=== PATIENT | male | born 1980 | race Hispanic/Latino ===

== ENCOUNTER 2019-01-29 12:25 | Emergency (ER) | payer OTHER ==
--- OUTSIDE RECORDS SUMMARY | 2019-01-29 12:27 | XMS REPORT | Clinical Summary ---
:1980 Author Organization [facility] Address [address] [place] [address] Care Team Providers Name Role Phone Pcp, No Primary Care Provider Unavailable Allergies No Known Allergies Medications Medication Sig Dispensed Refills Start Date End Date Status dicyclomine (BENTYL) Take 1 tablet 16 tablet 0 10/06/2014 Active 20 mg tablet (20 mg total) by mouth 2 (two) times daily as needed. acetaminophen-codeine Take 1 tablet 0 Active (TYLENOL #3) 300-30 mg by mouth every per tablet 4 (four) hours as needed for Pain. ondansetron Take 1 tablet 20 tablet 0 04/12/2018 04/19/2018 (ZOFRAN-ODT) 4 MG (4 mg total) by disintegrating tablet mouth every 8 (eight) hours as needed for Nausea for up to 7 days. acetaminophen-codeine Take 1-2 20 tablet 0 04/12/2018 04/22/2018 (TYLENOL #3) 300-30 mg tablets by per tablet mouth every 6 (six) hours as needed for Pain for up to 10 days. Max Daily Amount: 8 tablets Active Problems Not on file Encounters Date Type Specialty Care Team Description 04/12/2018 Emergency Emergency Medicine Peter Villarreal, Elevated lipase ( Primary Dx); Left flank pain; Left renal mass after 01/28/2018 Social History Tobacco Use Types Packs/Day Years Used Date Never Smoker Smokeless Tobacco: Never Used Alcohol Use Drinks/Week oz/Week Comments No Sex Assigned at Date Recorded Not on file Job Start Date Occupation Industry Not on file Not on file Not on file Travel History Travel Start Travel End No recent travel history available. Last Filed Vital Signs Vital Sign Reading Time Taken Blood Pressure 135/83 04/12/2018 11:54 AM [employer] Pulse 58 04/12/2018 11:54 AM [employer] MACHINE [employer]PERATOR Temperature 36.5 C (97.7 F) 04/12/2018 10:04 AM [employer] MACHINE OPERATOR Respiratory Rate 20 04/12/2018 11:54 AM [employer] MACHINE [employer]PERATOR Oxygen Saturation 99% 04/12/2018 11:54 AM [employer] MACHINE OPERATOR Inhaled Oxygen Concentration - - Weight 74.4 kg (164 lb) 04/12/2018 10:04 AM [employer] MACHINE OPERATOR Height 162.6 cm (5' 4") 04/12/2018 10:04 AM [employer] MACHINE OPERATOR Body Mass Index 28.15 04/12/2018 10:04 AM [employer] MACHINE OPERATOR Plan of Treatment Not on file Procedures Procedure Name Priority Date/Time Associated Comments Diagnosis CT CHEST WITH IV STAT 04/12/2018 10:57 Results for this CONTRAST AM [employer]INE [employer]PERATOR procedure are in the results section. LIPASE STAT 04/12/2018 10:46 Results for this AM [employer] M[employer]INE [employer]PERATOR procedure are in the results section. CBC W/PLT COUNT & AUTO STAT 04/12/2018 10:20 Results for this DIFFERENTIAL AM [employer] procedure are in the results section. URINALYSIS W/ STAT 04/12/2018 10:20 Results for this MICROSCOPIC AM [employer]PER[employer] procedure are in the results section. COMPREHENSIVE STAT 04/12/2018 10:20 Results for this METABOLIC PANEL AM [employer]INE [employer]PERATOR procedure are in the results section. CBC W/PLT COUNT & AUTO STAT 04/12/2018 10:20 Results for this DIFFERENTIAL AM [employer] MACHINE OPERATOR procedure are in the results section. BLOOD CULTURE STAT 04/12/2018 10:20 Results for this AM [employer] MACHINE OPERATOR procedure are in the results section. after 01/28/[address] chest with IV contrast (04/12/2018 10:57 AM CARTON MACHINE OPERATOR) Specimen Narrative Performed At FINAL REPORT [employer] [facility] TECHNIQUE: CT scan of the chest WITH intravenous contrast. Dose modulation, iterative reconstruction, and/or weight-based adjustment of the mA/kV was utilized to reduce the radiation dose to as low as reasonably achievable. INDICATION: Left lower rib/chest pain, history of pneumonia and empyema in 2011 with similar features. COMPARISON: Chest CT from 03/13/2012. FINDINGS: LINES/TUBES: None. LUNGS AND AIRWAYS: There is likely right basilar scarring/atelectasis from the prior right lower lobe pneumonia. PLEURA: The pleural spaces are clear. HEART AND MEDIASTINUM: The visualized thyroid gland is normal. No significant mediastinal, hilar, or axillary lymphadenopathy. The heart and pericardium are within normal limits. SOFT TISSUES AND BONES: Unremarkable. UPPER ABDOMEN: A subcentimeter right interpolar renal hypodensity is too small to characterize but likely a cyst. Area of left upper pole renal cortical irregularity measures 1.3 cm on image 59 and is most concerning for a solid renal neoplasm. Specifically, no areas of necrosis in the pancreas. No peripancreatic fluid collection. IMPRESSION: 1.No pulmonary embolus. 2.A solid left upper pole renal neoplasm measures 1.3 cm, concerning for renal cell carcinoma. Further evaluation with a CT renal mass protocol is recommended on a nonemergent basis to evaluate for other lesions. 3.The findings in the right lung base are most likely due to scarring from the prior empyema. The findings were discussed with Dr. Villarreal on 04/12/2018 11:28 AM. Signed: Mark Chase MD Report Verified Date/Time:04/12/2018 11:29:36 Reading Location: [facility] C013Y CT Body Reading Room Procedure Note Interface, External Ris In - 04/12/2018 11:31 AM CARTON MACHINE OPERATOR FINAL REPORT TECHNIQUE: CT scan of the chest WITH intravenous contrast. Dose modulation, iterative reconstruction, and/or weight-based adjustment of the mA/kV was utilized to reduce the radiation dose to as low as reasonably achievable. INDICATION: Left lower rib/chest pain, history of pneumonia and empyema in 2012 with similar features. COMPARISON: Chest CT from 03/13/2012. FINDINGS: LINES/TUBES: None. LUNGS AND AIRWAYS: There is likely right basilar scarring/atelectasis from the prior right lower lobe pneumonia. PLEURA: The pleural spaces are clear. HEART AND MEDIASTINUM: The visualized thyroid gland is normal. No significant mediastinal, hilar, or axillary lymphadenopathy. The heart and pericardium are within normal limits. SOFT TISSUES AND BONES: Unremarkable. UPPER ABDOMEN: A subcentimeter right interpolar renal hypodensity is too small to characterize but likely a cyst. Area of left upper pole renal cortical irregularity measures 1.3 cm on image 59 and is most concerning for a solid renal neoplasm. Specifically, no areas of necrosis in the pancreas. No peripancreatic fluid collection. IMPRESSION: 1.No pulmonary embolus. 2.A solid left upper pole renal neoplasm measures 1.3 cm, concerning for renal cell carcinoma. Further evaluation with a CT renal mass protocol is recommended on a nonemergent basis to evaluate for other lesions. 3.The findings in the right lung base are most likely due to scarring from the prior empyema. The findings were discussed with Dr. Villarreal on 04/12/2018 11:28 AM. Signed: Mark Chase MD Report Verified Date/Time: 04/12/2018 11:29:36 Reading Location: [facility] C013Y CT Body Reading Room Performing Organization Address City/[facility] Phone Number RIS Lipase (04/12/2018 10:46 AM CARTON MACHINE OPERATOR) Lipase 462 (H) 40 - 240 U/L [facility] Specimen Blood Performing Organization Address City/[facility]/Zipcode Phone Number [facility] [address] [place] [address] [phone] CBC with platelet count + automated diff (04/12/2018 10:20 AM CARTON MACHINE OPERATOR) WBC 7.1 4.0 - 10.0 K/L [facility] RBC 4.68 4.20 - 5.80 M/L [facility] Hemoglobin 15.0 13.0 - 16.8 GM/DL [facility] Hematocrit 43.3 36.0 - 50.0 % [facility] MCV 92.5 82.0 - 99.0 fL [facility] MCH 32.1 27.0 - 33.0 pg [facility] MCHC 34.6 32.0 - 36.0 GM/DL [facility] RDW 12.6 12.0 - 15.0 % [facility] Platelets 330 150 - 430 K/CU MM [facility] MPV 8.9Comment: 6.0 - 11.5 fL [facility] MPV-Approximately 20% positive bias due to method change. nRBC 0 0 - 0 /100 WBC [facility] % Neutros 52 % [facility] % Lymphs 32 % [facility] % Monos 11 % [facility] % Eos 4 % [facility] % Baso 0 % [facility] # Neutros 3.66 1.80 - 8.00 K/L [facility] # Lymphs 2.26 1.48 - 4.50 K/L [facility] # Monos 0.80 0.00 - 1.30 K/L [facility] # Eos 0.27 0.00 - 0.50 K/L [facility] # Baso 0.03 0.00 - 0.20 K/L [facility] Immature 0 0 - 0 % [facility] Granulocytes-Relative Specimen Blood Performing Organization Address [facility] Phone Number [facility] [address] [place] [address] Blood culture (04/12/2018 10:20 AM CARTON MACHINE OPERATOR) Result No growth in 5 days [facility] Specimen Blood Performing Organization Address [facility] Phone Number [facility] [address] [place] [address] Urinalysis w/Microscopic (04/12/2018 10:20 AM CARTON MACHINE OPERATOR) Color, UA Yellow [facility] Clarity, UA Clear [facility] Specific [place], UA 1.025 1.001 - 1.035 [facility] pH, UA 6.0 5.0 - 8.0 [facility] Protein, UA Negative Negative [facility] Glucose, UA Negative Negative [facility] Ketones, UA Negative Negative [facility] Bilirubin, UA Negative Negative [facility] Blood, UA Negative Negative [facility] Nitrite, UA Negative Negative [facility] Leukocytes, UA Negative Negative [facility] Urobilinogen, UA 0.2 0.2 - 1.0 mg/dL [facility] RBC, UA None Seen /HPF [facility] WBC, UA None Seen /HPF [facility] Specimen Source [facility] Specimen Urine Performing Organization Address [facility] Phone Number [facility] [address] [place] [address] Comprehensive metabolic panel (04/12/2018 10:20 AM CARTON MACHINE OPERATOR) Protein, Total 7.2 6.0 - 8.5 gm/dL [facility] Albumin 4.1 3.5 - 5.0 g/dL [facility] Alkaline Phosphatase 105 30 - 115 U/L [facility] Total Bilirubin 0.2 0.1 - 1.2 mg/dL [facility] Sodium 139 135 - 148 meq/L [facility] Potassium 4.3 3.6 - 5.5 meq/L [facility] Chloride 106 98 - 106 meq/L [facility] CO2 27 24 - 32 meq/L [facility] BUN 10 10 - 26 mg/dL [facility] Creatinine 0.68 0.50 - 1.20 mg/dL [facility] Glucose 105 70 - 110 mg/dL [facility] Calcium 8.9 8.5 - 10.5 mg/dL [facility] AST 16 5 - 40 U/L [facility] ALT 25 5 - 50 U/L [facility] EGFR 129Comment: ESTIMATED GFR mL/min/1.73 sq m [facility] IS NOT ACCURATE CREATININE CLEARANCE IN PREDICTING GLOMERULAR FILTRATION RATE. ESTIMATED GFR IS NOT APPLICABLE FOR DIALYSIS PATIENTS. Specimen Blood Performing Organization Address City/State/Zipcode Phone Number [facility] [address] [place] [address] [phone] after 01/28/2018
--- NOTE | 2019-01-29 13:23 | EDPHYS ---
Physician Documentation [facility] Name: Rickey Dong Age: 38 yrs Sex: Male : 1980 Arrival Date: 01/29/2019 Time: 12:28 Bed 19 Private MD: ED Physician Zachary Rodgers HPI: 01/29 13:16 This 38 yrs old Male presents to ER via Ambulatory with complaints of Rash. cp 13:16 The patient's rash thought to be caused by an unknown cause. The rash is located on the groin area. The rash can be described as erythematous, burning. Onset: The symptoms/episode began/occurred 2 week(s) ago. Associated signs and symptoms: Pertinent positives: burning sensation, Pertinent negatives: fever. Treatment given at home: OTC lotion/cream. Historical: - Allergies: 12:30 No Known Allergies; sv - PMHx: 12:30 kidney cancer; sv - PSHx: 12:30 partial kidney removed; sv - Immunization history:: Adult Immunizations up to date. ROS: 13:17 Constitutional: Negative for body aches, chills, fever, poor PO intake. cp 13:17 Abdomen/GI: Negative for abdominal pain, nausea, vomiting, and diarrhea. 13:17 Skin: Positive for rash, of the groin area. 13:17 All other systems are negative. Exam: 13:19 Constitutional: The patient appears in no acute distress, alert, awake, non-toxic, well cp developed, well nourished. 13:19 Head/Face: Normocephalic, atraumatic. cp 13:19 Skin: rash can be described as erythematous, scale, on the groin and scrotum. Vital Signs: 12:30 BP 140 / 82; Pulse 102; Resp 18; Temp 98.5; Pulse Ox 100% ; Weight 76.2 kg; Height 5 sv ft. 4 in. (162.56 cm); Pain 0/10; 12:30 Body Mass Index 28.84 (76.20 kg, 162.56 cm) sv MDM: 12:57 Patient medically screened. cp 13:20 Differential diagnosis: tinea cruris, cellulitis. cp 13:21 Data reviewed: vital signs, nurses notes, and as a result, I will discharge patient. cp 13:21 Counseling: I had a detailed discussion with the patient and/or guardian regarding: the cp historical points, exam findings, and any diagnostic results supporting the discharge/admit diagnosis, to return to the emergency department if symptoms worsen or persist or if there are any questions or concerns that arise at home. Administered Medications: No medications were administered Disposition: 13:35 Chart complete. cp 16:05 Co-signature as Attending Physician, Zachary Rodgers MD I agree with the assessment and kdr plan of care. Disposition: 01/29/19 13:22 Discharged to Home. Impression: Tinea cruris. - Condition is Stable. - Discharge Instructions: Jock Itch. - Prescriptions for Clotrimazole 1 % Topical Cream - Apply to affected area 1 application by TOPICAL route every 12 hours for 10 days apply to groin area; 30 gram. Fluconazole 150 mg Oral Tablet - take 1 tablet by ORAL route every other day for 3 days; 3 tablet. - Medication Reconciliation Form, Thank You Letter, Antibiotic Education, Prescription Opioid Use, Work release form form. - Follow up: Private Physician; When: 1 week; Reason: Worsening of condition. Signatures: Steffi Soler RN RN Zachary Neely MD MD kdr Drake So, CHOPPER FEEDER CHOPPER FEEDER em Alfa Haas PA PA cp Corrections: (The following items were deleted from the chart) 13:31 13:22 01/29/2019 13:22 Discharged to Home. Impression: Tinea cruris. Condition is em Stable. Discharge Instructions: Jock Itch. Prescriptions for Clotrimazole 1 % Topical Cream - Apply to affected area 1 application by TOPICAL route every 12 hours for 10 days apply to groin area; 30 gram, Fluconazole 150 mg Oral Tablet - take 1 tablet by ORAL route every other day for 3 days; 3 tablet. and Forms are Medication Reconciliation Form, Thank You Letter, Antibiotic Education, Prescription Opioid Use. Follow up: Private Physician; When: 1 week; Reason: Worsening of condition. cp
--- NOTE | 2019-01-29 13:23 | ER ---
Nurse's Notes [facility] Name: Rickey Dogn Age: 38 yrs Sex: Male : 1980 Arrival Date: 01/29/2019 Time: 12:28 Bed 19 Private MD: Diagnosis: Tinea cruris Presentation: 01/29 12:29 Presenting complaint: Patient states: rash in groin area x 2 weeks, works out in the heat. Transition of care: patient was not received from another setting of care. Onset of symptoms was December 2018. Risk Assessment: Do you want to hurt yourself or someone else? Patient reports no desire to harm self or others. Initial Sepsis Screen: Does the patient meet any 2 criteria? No. Patient's initial sepsis screen is negative. Does the patient have a suspected source of infection? No. Patient's initial sepsis screen is negative. Care prior to arrival: None. 12:29 Method Of Arrival: Ambulatory sv 12:29 Acuity: CORTES 5 sv Historical: - Allergies: 12:30 No Known Allergies; sv - PMHx: 12:30 kidney cancer; sv - PSHx: 12:30 partial kidney removed; sv - Immunization history:: Adult Immunizations up to date. Screenin:25 Abuse screen: Denies threats or abuse. Nutritional screening: No deficits noted. em Tuberculosis screening: No symptoms or risk factors identified. Fall Risk None identified. Assessment: 13:29 General: Appears in no apparent distress. comfortable, Behavior is calm, cooperative. em Pain: Denies pain. Neuro: Level of Consciousness is awake, alert, obeys commands. Cardiovascular: Capillary refill < 3 seconds Patient's skin is warm and dry. Respiratory: Airway is patent Respiratory effort is even, unlabored, Respiratory pattern is regular, symmetrical. Derm: Skin is intact, is healthy with good turgor, Skin is pink, warm \T\ dry. Rash noted that is itchy, red, on groin. Musculoskeletal: Capillary refill < 3 seconds, Range of motion: intact in all extremities. Vital Signs: 12:30 BP 140 / 82; Pulse 102; Resp 18; Temp 98.5; Pulse Ox 100% ; Weight 76.2 kg; Height 5 sv ft. 4 in. (162.56 cm); Pain 0/10; 12:30 Body Mass Index 28.84 (76.20 kg, 162.56 cm) ED Course: 12:28 Patient arrived in ED. mr 12:30 Triage completed. sv 12:31 Arm band placed on. sv 12:56 Drake So LVN is Primary Nurse. em 12:56 Alfa Haas PA is PHCP. cp 12:56 Zachary Rodgers MD is Attending Physician. cp 13:25 Patient has correct armband on for positive identification. Placed in gown. Bed in low em position. Call light in reach. Adult w/ patient. 13:25 No provider procedures requiring assistance completed. Patient did not have IV access em during this emergency room visit. Administered Medications: No medications were administered Outcome: 13:22 Discharge ordered by MD. cp 13:31 Discharged to home ambulatory, with family. em 13:31 Condition: good 13:31 Discharge instructions given to patient, Instructed on discharge instructions, follow up and referral plans. medication usage, Demonstrated understanding of instructions, follow-up care, medications, Prescriptions given X 2. 13:31 Patient left the ED. em Signatures: Steffi Soler RN RN Avila Janeth mr JudahDrake LVN LVN em Alfa Haas PA PA cp
== END 2019-01-29 13:31 | disposition home or self-care (01) ==
LOC: ER 12:25
DX: B35.6 Tinea cruris (principal); Z85.528 Personal history of other malignant neoplasm of kidney
CPT/HCPCS: 99282

== ENCOUNTER 2019-03-15 13:32 | Emergency (ER) | payer OTHER ==
[2019-03-15 14:37] LABS: Basophils % 0.6 % (0-1.3); Hematocrit 43.7 % (39.6-49.0); Lymphocytes % 33.8 % (15.3-44.8); MPV 7.9 fL (7.6-11.3); RBC Red Blood Cell Count 4.68 M/uL (4.33-5.43)
[2019-03-15 14:40] LABS: Protime INR 1.04
--- NOTE | 2019-03-15 15:02 | RAD REPORT ---
EXAM DESCRIPTION: RAD - Chest Single View - 03/15/2019 2:56 pm CLINICAL HISTORY: Palpitations, flank pain COMPARISON: None. TECHNIQUE: AP portable chest image was obtained 1439 hours . FINDINGS: Lungs are clear. Heart and vasculature are normal. No measurable pleural effusion and no p neumothorax. No acute bony abnormality seen. No acute aortic findings suspected. IMPRESSION: No acute cardiopulmonary process.
[2019-03-15 15:21] LABS: ALT/SGPT 25 U/L (12-78); AST/SGOT 17 U/L (15-37); Albumin 3.8 g/dL (3.4-5.0); Alkaline Phosphatase 121 U/L (45-117); BUN Blood Urea Nitrogen 8 mg/dL (7-18); Bicarbonate 28 mmol/L (21-32); Bilirubin Direct 0.1 mg/dL (0-0.2); Bilirubin Total 0.5 mg/dL (0.2-1.0); Glucose Level 122 mg/dL (74-106); Lipase 114 U/L (73-393); NT PRO-BNP 22 pg/mL (<125); Protein, Total 7.3 g/dL (6.4-8.2); Sodium Level 140 mmol/L (136-145); Troponin (Emerg Dept Use Only) < 0.02 ng/mL (0.0-0.045)
--- NOTE | 2019-03-15 15:50 | EKG ---
Test Date: 2019-03-15 Test Time: 13:45:56 Flight Attendant/Inflight Supervisor: ERIC MEASUREMENT RESULTS: Intervals: Rate: 90 WA: 138 QRSD: 92 QT: 352 QTc: 430 [place]: P: 45 WA: 138 QRS: 42 T: 12 INTERPRETIVE STATEMENTS: Normal sinus rhythm Nonspecific T wave abnormality Abnormal ECG No previous ECG available for comparison Electronically Signed On 03-15-19 15:49:47 CDT by Joni Serna
--- NOTE | 2019-03-15 15:51 | RAD REPORT ---
EXAM DESCRIPTION: CT - Angio Aorta For Dissection - 03/15/2019 3:39 pm CLINICAL HISTORY: Chest pain radiating to the back. PAIN COMPARISON: No comparisons TECHNIQUE: CT angiography of the aorta was performed with MIPs. All CT scans are performed using dose optimization technique as appropriate and may include automated exposure control or mA/KV adjustment according to patient size. FINDINGS: A left aortic arch is present with normal branching pattern of the great vessels.No acute aortic finding is seen such as aneurysm, penetrating ulcer or dissection. The celiac axis, SMA, JOVANNI and renal arteries are widely patent. No evidence of pulmonary embolism. The lungs are clear except for minimal subsegmental atelectasis in the right posterior gutter. No acu te infiltrate. . The liver demonstrates no focal mass or biliary dilatation.The spleen, pancreas, adrenal glands and k idneys are within normal limits for arterial phase imaging.Evidence of prior surgical intervention lam perior left kidney. No bowel obstruction, free fluid or abscess.No pathologic enlarged lymphadenopathy identified. No fracture or worrisome bone lesion seen. IMPRESSION: No acute aortic finding is demonstrated.
--- NOTE | 2019-03-15 16:16 | EDPHYS ---
Physician Documentation [facility] Name: Rickey Dong Age: 39 yrs Sex: Male : 1980 Arrival Date: 03/15/2019 Time: 13:33 Bed 18 Private MD: ED Physician Alfa Lloyd HPI: 03/15 15:21 This 39 yrs old Male presents to ER via Ambulatory with complaints of Flank jan Pain. 15:21 The patient complains of pain in the left subscapular area, left low back and left mid jan back. The pain does not radiate. Onset: The symptoms/episode began/occurred. Modifying factors: The symptoms are alleviated by nothing. the symptoms are aggravated by nothing. Associated signs and symptoms: The patient has no apparent associated signs or symptoms. Severity of pain: At its worst the pain was moderate in the emergency department the pain has improved mildly. The patient has not experienced similar symptoms in the past. Historical: - Allergies: 13:41 No Known Allergies; bp - Home Meds: 13:41 Vicodin 5/500 Oral [Active]; bp - PMHx: 13:41 kidney cancer; bp - Immunization history:: Adult Immunizations up to date. - Social history:: Smoking status: Patient/guardian denies using tobacco. - Ebola Screening: : No symptoms or risks identified at this time. - Family history:: not pertinent. ROS: 15:21 Constitutional: Negative for fever, chills, and weight loss, Eyes: Negative for injury, jan pain, redness, and discharge, ENT: Negative for injury, pain, and discharge, Neck: Negative for injury, pain, and swelling, Cardiovascular: Negative for chest pain, palpitations, and edema, Abdomen/GI: Negative for abdominal pain, nausea, vomiting, diarrhea, and constipation, : Negative for injury, bleeding, discharge, and swelling, MS/Extremity: Negative for injury and deformity, Skin: Negative for injury, rash, and discoloration, Neuro: Negative for headache, weakness, numbness, tingling, and seizure, Psych: Negative for depression, anxiety, suicide ideation, homicidal ideation, and hallucinations, Allergy/Immunology: Negative for hives, rash, and allergies, Endocrine: Negative for neck swelling, polydipsia, polyuria, polyphagia, and marked weight changes, Hematologic/Lymphatic: Negative for swollen nodes, abnormal bleeding, and unusual bruising. 15:21 Respiratory: Positive for cough, shortness of breath. 15:21 Back: Positive for flank pain, on the right. Exam: 15:23 Constitutional: This is a well developed, well nourished patient who is awake, alert, jan and in no acute distress. Head/Face: Normocephalic, atraumatic. Eyes: Pupils equal round and reactive to light, extra-ocular motions intact. Lids and lashes normal. Conjunctiva and sclera are non-icteric and not injected. Cornea within normal limits. Periorbital areas with no swelling, redness, or edema. ENT: Nares patent. No nasal discharge, no septal abnormalities noted. Tympanic membranes are normal and external auditory canals are clear. Oropharynx with no redness, swelling, or masses, exudates, or evidence of obstruction, uvula midline. Mucous membranes moist. Neck: Trachea midline, no thyromegaly or masses palpated, and no cervical lymphadenopathy. Supple, full range of motion without nuchal rigidity, or vertebral point tenderness. No Meningismus. Chest/axilla: Normal chest wall appearance and motion. Nontender with no deformity. No lesions are appreciated. Cardiovascular: Regular rate and rhythm with a normal S1 and S2. No gallops, murmurs, or rubs. Normal PMI, no JVD. No pulse deficits. Respiratory: Lungs have equal breath sounds bilaterally, clear to auscultation and percussion. No rales, rhonchi or wheezes noted. No increased work of breathing, no retractions or nasal flaring. Abdomen/GI: Soft, non-tender, with normal bowel sounds. No distension or tympany. No guarding or rebound. No evidence of tenderness throughout. Back: No spinal tenderness. No costovertebral tenderness. Full range of motion. Male : Normal genitalia with no discharge or lesions. Skin: Warm, dry with normal turgor. Normal color with no rashes, no lesions, and no evidence of cellulitis. MS/ Extremity: Pulses equal, no cyanosis. Neurovascular intact. Full, normal range of motion. Neuro: Awake and alert, GCS 15, oriented to person, place, time, and situation. Cranial nerves II-XII grossly intact. Motor strength 5/5 in all extremities. Sensory grossly intact. Cerebellar exam normal. Normal gait. Psych: Awake, alert, with orientation to person, place and time. Behavior, mood, and affect are within normal limits. 15:24 Musculoskeletal/extremity: DVT Exam: No signs of deep vein thrombosis. no pain, no jan swelling, no tenderness, negative Homans' sign noted on exam, no appreciated bluish discoloration, no erythema, no increased warmth. Vital Signs: 13:41 BP 123 / 80; Pulse 96; Resp 16; Temp 97.7; Pulse Ox 98% ; Weight 76.2 kg; Height 5 ft. bp 4 in. (162.56 cm); 15:56 BP 123 / 83; Pulse 76; Resp 17; Pulse Ox 99% on R/A; sg 17:00 BP 116 / 77; Pulse 77; Resp 16; Temp 97.7; Pulse Ox 99% on R/A; sg 13:41 Body Mass Index 28.84 (76.20 kg, 162.56 cm) bp MDM: 14:13 Patient medically screened. [facility] 15:49 Data reviewed: vital signs, nurses notes, lab test result(s), EKG, radiologic studies, [facility] CT scan, plain films. 03/15 14:16 Order name: Basic Metabolic Panel; Complete Time: 15:48 [facility] 03/15 14:16 Order name: CBC with Diff; Complete Time: 15:21 [facility] 03/15 14:16 Order name: LFT's; Complete Time: 15:48 [facility] 03/15 14:16 Order name: Magnesium; Complete Time: 15:48 [facility] 03/15 14:16 Order name: NT PRO-BNP; Complete Time: 15:48 [facility] 03/15 14:16 Order name: PT-INR; Complete Time: 15:21 [facility] 03/15 14:16 Order name: Troponin (emerg Dept Use Only); Complete Time: 15:48 [facility] 03/15 14:16 Order name: XRAY Chest (1 view); Complete Time: 15:21 [facility] 03/15 14:16 Order name: EKG; Complete Time: 14:17 [facility] 03/15 14:16 Order name: Cardiac monitoring; Complete Time: 14:29 [facility] 03/15 14:16 Order name: Lipase; Complete Time: 15:48 [facility] 03/15 15:21 Order name: CT Aorta for Dissection; Complete Time: 16:14 [facility] 03/15 15:21 Order name: Urine Culture [facility] 03/15 15:41 Order name: Urine Dipstick--Ancillary (enter results) 03/15 14:16 Order name: EKG - Nurse/Tech; Complete Time: 15:29 [facility] 03/15 14:16 Order name: IV Saline Lock; Complete Time: 14:30 [facility] 03/15 14:16 Order name: Labs collected and sent; Complete Time: 14:30 [facility] 03/15 14:16 Order name: O2 Per Protocol; Complete Time: 14:30 [facility] 03/15 14:16 Order name: O2 Sat Monitoring; Complete Time: 14:30 [facility] 03/15 14:16 Order name: Urine Dipstick-Ancillary (obtain specimen); Complete Time: 15:29 [facility] Administered Medications: No medications were administered Disposition: 03/15/19 16:15 Discharged to Home. Impression: Pleurisy, Abdominal tenderness. - Condition is Stable. - Discharge Instructions: Abdominal Pain, Adult, Pleurisy, Abdominal Pain, Adult, [id number], Pleurisy, [id number]. - Prescriptions for Tylenol- Codeine #3 300-30 mg Oral Tablet - take 2 tablets by ORAL route every 6 hours As needed; 20 tablet. Motrin IB 200 mg Oral Tablet - take 2 tablet by ORAL route every 6 hours As needed as needed with food; 24 tablet. - Work release form, Medication Reconciliation Form, Thank You Letter, Antibiotic Education, Prescription Opioid Use form. - Follow up: Private Physician; When: 2 - 3 days; Reason: Recheck today's complaints, Continuance of care, Re-evaluation by your physician. - Problem is new. - Symptoms have improved. Signatures: Dispatcher [employer] EDMS Sammy Ballesteros, RN RN Alfa Adamson MD MD cha Peltier, Brian, RN RN bp Corrections: (The following items were deleted from the chart) 17:01 16:15 03/15/2019 16:15 Discharged to Home. Impression: Pleurisy; Abdominal tenderness. sg Condition is Stable. Discharge Instructions: Abdominal Pain, Adult, Pleurisy, Abdominal Pain, Adult, [id number], Pleurisy, [id number]. Prescriptions for Tylenol-Codeine #3 300-30 mg Oral Tablet - take 2 tablets by ORAL route every 6 hours As needed; 20 tablet. and Forms are Medication Reconciliation Form, Thank You Letter, Antibiotic Education, Prescription Opioid Use. Follow up: Private Physician; When: 2 - 3 days; Reason: Recheck today's complaints, Continuance of care, Re-evaluation by your physician. Problem is new. Symptoms have improved. jan
--- NOTE | 2019-03-15 16:16 | ER ---
Nurse's Notes [facility] Name: Rickey Dong Age: 39 yrs Sex: Male : 1980 Arrival Date: 03/15/2019 Time: 13:33 Bed 18 Private MD: Diagnosis: Pleurisy;Abdominal tenderness Presentation: 03/15 13:41 Presenting complaint: Patient states: PALPITATIONS, LUE NUMBNESS, R FLANK PAIN. bp Transition of care: patient was not received from another setting of care. Onset of symptoms is unknown. Risk Assessment: Do you want to hurt yourself or someone else?. Initial Sepsis Screen: Does the patient meet any 2 criteria? No. Patient's initial sepsis screen is negative. Does the patient have a suspected source of infection? No. Patient's initial sepsis screen is negative. Care prior to arrival: None. 13:41 Method Of Arrival: Ambulatory bp 13:41 Acuity: CORTES 3 bp Historical: - Allergies: 13:41 No Known Allergies; bp - Home Meds: 13:41 Vicodin 5/500 Oral [Active]; bp - PMHx: 13:41 kidney cancer; bp - Immunization history:: Adult Immunizations up to date. - Social history:: Smoking status: Patient/guardian denies using tobacco. - Ebola Screening: : No symptoms or risks identified at this time. - Family history:: not pertinent. Screenin:28 Abuse screen: Denies threats or abuse. Denies injuries from another. Nutritional sg screening: No deficits noted. Tuberculosis screening: No symptoms or risk factors identified. Never had TB. Fall Risk None identified. Assessment: 14:25 General: Appears in no apparent distress. well groomed, well developed, well nourished, sg Behavior is calm, cooperative, appropriate for age. Pain: Complains of pain in left mid back and right mid back Quality of pain is described as aching. Neuro: Cardiovascular: Reports palpitations, Heart tones S1 S2 present Patient's skin is warm and dry. Chest pain is denied. Respiratory: Airway is patent Respiratory effort is even, unlabored, Respiratory pattern is regular, symmetrical. GI: No signs and/or symptoms were reported involving the gastrointestinal system. : No signs and/or symptoms were reported regarding the genitourinary system. EENT: No signs and/or symptoms were reported regarding the EENT system. Derm: Skin is pink, warm \T\ dry. Musculoskeletal: No signs and/or symptoms reported regarding the musculoskeletal system. 15:51 Reassessment: Patient appears in no apparent distress at this time. Patient and/or sg family updated on plan of care and expected duration. Pain level reassessed. Patient is alert, oriented x 3, equal unlabored respirations, skin warm/dry/pink. 17:00 Reassessment: Patient appears in no apparent distress at this time. Patient and/or sg family updated on plan of care and expected duration. Pain level reassessed. Patient is alert, oriented x 3, equal unlabored respirations, skin warm/dry/pink. Patient states feeling better. Patient states symptoms have improved. Vital Signs: 13:41 BP 123 / 80; Pulse 96; Resp 16; Temp 97.7; Pulse Ox 98% ; Weight 76.2 kg; Height 5 ft. bp 4 in. (162.56 cm); 15:56 BP 123 / 83; Pulse 76; Resp 17; Pulse Ox 99% on R/A; sg 17:00 BP 116 / 77; Pulse 77; Resp 16; Temp 97.7; Pulse Ox 99% on R/A; sg 13:41 Body Mass Index 28.84 (76.20 kg, 162.56 cm) bp ED Course: 13:33 Patient arrived in ED. as 13:41 Arm band placed on. bp 13:43 Triage completed. bp 13:51 EKG done, by chemistry laboratory technician. reviewed by Alfa Lloyd MD. at1 13:52 Patient has correct armband on for positive identification. Bed in low position. Call sg light in reach. Side rails up X2. surveillance system monitor on. Pulse ox on. NIBP on. Warm blanket given. Head of bed elevated. 14:13 Alfa Lloyd MD is Attending Physician. jan 14:20 No provider procedures requiring assistance completed. Initial lab(s) drawn, by pr, sg sent to lab. Inserted saline lock: 20 gauge in right antecubital area, using aseptic technique. Blood collected. 14:27 Sammy Ballesteros, RN is Primary Nurse. sg 14:56 XRAY Chest (1 view) In Process Unspecified. EDMS 15:40 CT Aorta for Dissection In Process Unspecified. EDMS 15:40 Urine collected: clean catch specimen, clear. sg 15:42 Patient moved back from DC. sg 17:00 IV discontinued, intact, bleeding controlled, No redness/swelling at site. Pressure sg dressing applied. Administered Medications: No medications were administered Outcome: 16:15 Discharge ordered by . jan 17:00 Discharged to home ambulatory, with family. 17:00 Condition: good 17:00 Discharge instructions given to patient, family, Instructed on discharge instructions, follow up and referral plans. no drinking with medication, no driving heavy equipment, medication usage, safety practices, Demonstrated understanding of instructions, follow-up care, medications, Prescriptions given X 2. 17:01 Patient left the ED. sg Signatures: Dispatcher [employer] EDMS Sammy Ballesteros, RN RN Alfa Adamson MD MD cha Martinez, Amelia as Gonzales, Amanda, dynamics ax consultant EKG Tat1 John Dc, RN RN bp
[2019-03-15 16:18] LABS: Urine Blood NEGATIVE (NEG); Urine Glucose NEGATIVE (NEG); Urine Protein NEGATIVE (NEG); Urine pH 7.5 (5.0-7.0)
[2019-03-15 17:39] VITALS: TEMP 97.7
[2019-03-15 17:40] VITALS: BP 123/83; O2SAT 99
== END 2019-03-15 17:01 | disposition home or self-care (01) ==
LOC: ER 13:32
DX: R09.1 Pleurisy (principal); R10.819 Abdominal tenderness, unspecified site; Z85.528 Personal history of other malignant neoplasm of kidney
CPT/HCPCS: 93005; 87088; 85025; 80048; 36415; 83735; 85610; 80076; 81003; 84484; 83690; 83880; 71275; 74175; 71045; 99285; Q9967; 87086